=== PATIENT | male | born 1970 | race Caucasian/White ===

== ENCOUNTER 2018-03-28 14:14 | Emergency (ER) | payer OTHER ==
[2018-03-28] MEDS ORDERED: Propofol 200 MG/20 ML SDV IV ONE (14:15)
[2018-03-28] MEDS ORDERED: fentaNYL 100 MCG/2 ML SDV ONE (14:25)
[2018-03-28] MEDS ORDERED: Midazolam 1 MG/ML 2 ML SDV ONE (14:25)
[2018-03-28] MEDS ORDERED: Midazolam 1 MG/ML 2 ML SDV IVPUSH ONE ×2 (14:27→14:58)
[2018-03-28] MEDS ORDERED: fentaNYL 100 MCG/2 ML SDV IVPUSH ONE (14:27)
[2018-03-28] MEDS: Sodium Chloride 0.9% 10 ML Syringe FLUSH PRN ×2 (14:32→16:00)
--- NOTE | 2018-03-28 14:32 | EDM.PDOC ---
ED HPI GENERAL MEDICAL PROBLEM - General Stated Complaint: DISLOCATED RT SHOULDER Time Seen by Provider: 03/28/18 14:28 Source of Information: Reports: Patient History Limitations: Reports: No Limitations - History of Present Illness INITIAL COMMENTS - FREE TEXT/NARRATIVE: Patient comes emergency department today with an injury to his right shoulder. 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 And his arm went up over his head. He feels that his shoulder is dislocated. He came right to the emergency department. He did not his head. He has no head neck or back pain. He does complain of some paresthesias to his right lower extremity. Denies any past medical history Right Shoulder Pain Score (Numeric/FACES): 10 - Related Data Allergies Allergy/AdvReac Type Severity Reaction Status Date / Time Penicillins Allergy Cannot Verified 03/28/18 14:44 Remember tramadol Allergy Cannot Verified 03/28/18 14:44 Remember Home Meds: Home Meds . [No Known Home Meds] 09/22/15 [History] Past Medical History Musculoskeletal History: Reports: Back Pain, Chronic, Fracture - Past Surgical History Musculoskeletal Surgical History: Reports: Other (See Below) Social & Family History - Family History Family Medical History: Noncontributory - Living Situation & Occupation Living situation: Reports: Single, Alone Occupation: Employed Review of Systems - Review of Systems Review Of Systems: ROS reveals no pertinent complaints other than HPI. ED EXAM, GENERAL - Physical Exam Exam: See Below Free Text/Narrative:: Patient appears quite uncomfortable General Appearance: Alert, WD/WN, Moderate Distress (In pain) Respiratory/Chest: No Respiratory Distress, Lungs Clear, Normal Breath Sounds, No Accessory Muscle Use, Chest Non-Tender Cardiovascular: Normal Peripheral Pulses, Regular Rate, Rhythm, No Edema, No Murmur Back Exam: Normal Inspection, Full Range of Motion Extremities: Normal Capillary Refill, Limited Range of Motion (To the right arm due to the assumed dislocated shoulder.). No: Normal Inspection (Examination of the right shoulder shows some loss of fullness to the right shoulder. He does have good CMS. There is no bruising swelling ecchymosis or overt bony deformity.), Normal Range of Motion Neurological: Alert, Oriented, Normal Cognition, No Motor/Sensory Deficits Psychiatric: Anxious Skin Exam: Dry, Intact, No Rash, Cool, Pallor Lymphatic: No Adenopathy ED TRAUMA EXTREMITY PROCEDURES - Joint Reduction Site: Shoulder (R) Sedation: Conscious Sedation Technique: Traction/Counter Traction Number of Attempts: 1 Post-Reduction Imaging: Completely Reduced (Very easily) Joint Reduction Complications: No Progress/Comments: placed in a shoulder immobilizer with good CMS post reduction. See anesthesia record for joint reduction. Course - Vital Signs Last Recorded V/S: Last Vital Signs Temp 36.7 C 03/28/18 14:39 Pulse 79 03/28/18 14:39 Resp 20 03/28/18 14:39 BP 143/102 H 03/28/18 14:39 Pulse Ox 97 03/28/18 14:39 - Orders/Labs/Meds Orders: Active Orders 24 hr Category Date Time Status Peripheral IV Care [RC] . DIRECTED Care 03/28/18 14:27 Active Peripheral IV Insertion Adult [OM.PC] Stat Oth 03/28/18 14:27 Ordered Meds: Medications Discontinued Medications Generic Name Dose Route Start Last Admin Trade Name Fanta PRN Reason Stop Dose Admin Fentanyl Confirm 03/28/18 14:25 03/28/18 14:32 Sublimaze Administered 03/28/18 14:26 Not Given Dose 100 mcg .ROUTE .STK-MED ONE Fentanyl 100 mcg 03/28/18 14:27 03/28/18 14:29 Sublimaze IVPUSH 03/28/18 14:28 100 mcg ONETIME ONE Administration Hydromorphone HCl 1 mg 03/28/18 14:56 03/28/18 14:59 Dilaudid IVPUSH 03/28/18 14:57 1 mg ONETIME ONE Administration Ketorolac Tromethamine 30 mg 03/28/18 15:51 03/28/18 16:00 Toradol IVPUSH 03/28/18 15:52 30 mg ONETIME ONE Administration Midazolam HCl 1 mg 03/28/18 14:27 03/28/18 14:29 Versed 1 Mg/Ml IVPUSH 03/28/18 14:28 1 mg ONETIME ONE Administration Midazolam HCl Confirm 03/28/18 14:25 03/28/18 14:33 Versed 1 Mg/Ml Administered 03/28/18 14:26 Not Given Dose 2 mg .ROUTE .STK-MED ONE Midazolam HCl 1 mg 03/28/18 14:58 03/28/18 15:04 Versed 1 Mg/Ml IVPUSH 03/28/18 14:59 1 mg ONETIME ONE Administration Sodium Chloride 10 ml 03/28/18 14:27 03/28/18 16:00 Saline Flush FLUSH 10 ml ASDIRECTED PRN Administration Keep Vein Open - Radiology Interpretation Free Text/Narrative:: X-ray of the right shoulder shows an anterior dislocation without any evidence of fracture per radiology. Postreduction x-ray confirms successful reduction of the right dislocated shoulder. No associated fracture. - Re-Assessments/Exams Free Text/Narrative Re-Assessment/Exam: 03/28/18 14:32 IV midazolam 1mg IVP Fentanyl 100mcg IVP 03/28/18 Patient continued to have quite a bit of pain and was given some Dilaudid. I did discuss a course of action for shoulder reduction despite the above medications with the patient and his significant other. Risk and benefits of deep sedation by anesthesia as well as reduction of the shoulder were explained to the patient. Verbal consent was obtained. After timeout was completed and good anesthesia was verified. The shoulder was easily reduced by myself. He tolerated the procedure well. Awoke from anesthesia without any competitions. He was placed in a shoulder immobilizer. He has absolutely no pain following the reduction. He feels much better. His neurovascular status is normal. [facility]. He is comfortable with this plan his questions are answered. Departure - Departure Time of Disposition: 16:35 Disposition: Home, Self-Care 01 Clinical Impression: Shoulder dislocation Qualifiers: Encounter type: initial encounter Laterality: right Qualified Code(s): S43.004A - Unspecified dislocation of right shoulder joint, initial encounter - Discharge Information Instructions: Pain Medicine Instructions, [id number], How to Use a Shoulder Immobilizer, Shoulder Dislocation, [id number] Referrals: PCP,None [Primary Care Provider] - Forms: ED Department Discharge Additional Instructions: Tylenol and or Ibuprofen as needed for pain. Keep your arm in the immobilizer at all times ESPECIALLY when sleeping. Ice to the shoulder. If pain not controlled with above. [place] 1 tablet every 4 hrs as needed for pain. Caution sedation. Rx given to the patient. Return to the ED if new or worsening symptoms. [facility] for recheck and [employer] [employer] management of your dislocated shoulder. - My Orders Last 24 Hours: My Active Orders 03/28/18 14:27 Peripheral IV Care [RC] . DIRECTED Peripheral IV Insertion Adult [OM.PC] Stat - Assessment/Plan Last 24 Hours: My Active Orders 03/28/18 14:27 Peripheral IV Care [RC] . DIRECTED Peripheral IV Insertion Adult [OM.PC] Stat Assessment:: Right shoulder dislocation Reduction with moderated/deep sedation by anesthesia. Plan: Tylenol and or Ibuprofen as needed for pain. Keep your arm in the immobilizer at all times ESPECIALLY when sleeping. Ice to the shoulder. If pain not controlled with above. [place] 1 tablet every 4 hrs as needed for pain. Caution sedation. Rx given to the patient. Return to the ED if new or worsening symptoms. [facility] for reche[facility] and [employer] management of your dislocated shoulder.
[2018-03-28 14:44] VITALS: BP 143/102
[2018-03-28] MEDS ORDERED: HYDROmorphone 1 MG/ML Syringe IVPUSH ONE (14:56)
--- NOTE | 2018-03-28 15:01 | CR ---
Clinical history: 47-year-old male right shoulder injury. Interpretation: 2 views right shoulder confirm complete anterior dislocation proximal right humerus (head) from the glenoid of the ipsilateral scapula. No associated dislocation. No ipsilateral acromioclavicular separation. Underlying ribs unremarkable. Right lung apex clear.
--- NOTE | 2018-03-28 15:32 | CR ---
Clinical history: 47-year-old male with "anterior dislocation, right shoulder". Interpretation: Single AP post reduction film confirms satisfactory relocation of the right humeral head into the shoulder joint. No sign of post reduction fracture.
[2018-03-28] MEDS ORDERED: Ketorolac 30 MG/ML SDV IVPUSH ONE (15:51)
== END 2018-03-28 16:43 | disposition home or self-care (01) ==
LOC: DL.ED 14:14
DX: S43.004A Unspecified dislocation of right shoulder joint, initial encounter (principal); Z88.0 Allergy status to penicillin; Z88.5 Allergy status to narcotic agent
CPT/HCPCS: 01620; 23650; 73020; 73030; 96374; 96375; 96376; 99282; J1170; J1885; J2250; J2704; J3010; 99283